=== PATIENT | female | born 1990 | race African-American/Black ===

== ENCOUNTER 2020-12-20 08:47 | Emergency (ER) | payer SELFPAY ==
[2020-12-20] MEDS ORDERED: Acetaminophen 500 MG TAB ONE (09:30)
== END 2020-12-20 10:25 | disposition home or self-care (01) ==
LOC: ERS 08:47
DX: J02.0 Streptococcal pharyngitis (principal); H66.91 Otitis media, unspecified, right ear
CPT/HCPCS: 87430; 99283